=== PATIENT | male | born 1990 | race Caucasian/White ===

== ENCOUNTER 2022-05-30 00:44 | Emergency (ER) | payer MEDICAID, SELFPAY ==
[2022-05-30 00:48] VITALS: BMI 22.6
[2022-05-30 00:51] VITALS: BP 133/87; PULSE 117; RESP 13; TEMP 36.8; O2SAT 97
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
== END 2022-05-30 01:41 | disposition home or self-care (01) ==
PROVIDERS: Emergency Provider Emergency Medicine
DX: S63.610A Unspecified sprain of right index finger, initial encounter (principal); W19.XXXA Unspecified fall, initial encounter
CPT/HCPCS: 73130; 99283

== ENCOUNTER 2022-06-09 02:56 | Emergency (ER) | payer MEDICAID, SELFPAY ==
[2022-06-09 02:58] VITALS: BP 138/83; PULSE 109; RESP 19; TEMP 36.6; O2SAT 97; BMI 23.3
[2022-06-09 03:07] VITALS: PULSE 111; RESP 19; O2SAT 95
--- NOTE | 2022-06-09 03:07 | PC.NURSE ---
patient denies neck pain, reports severe headache and blurry vision. patient noncompliant with fall precautions, ambulatory to bathroom to provide urine sample, assisted by staff. on return to stretcher patient gait altered, assisted by 2 staff to bed. patient placed back in bed and put back on monitor.
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
[2022-06-09 03:27] VITALS: BP 155/106; RESP 22; O2SAT 95
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
--- NOTE | 2022-06-09 03:33 | PC.NURSE ---
patient returned to ed exam room at this time.
[2022-06-09 03:40] VITALS: RESP 22; O2SAT 97
[2022-06-09] MEDS: HYDROmorphone 1 mg/mL INJ 1 mL IVP (03:40)
[2022-06-09] MEDS: ondansetron 2 mg/ML SDV 2 mL 4 MG IVP (03:41)
[2022-06-09] MEDS: ketorolac 30 mg/mL INJ IVP (04:40)
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
[2022-06-09 05:10] VITALS: PULSE 102; RESP 16; O2SAT 98
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
== END 2022-06-09 05:12 | disposition home or self-care (01) ==
PROVIDERS: Emergency Provider Emergency Medicine
DX: S01.01XA Laceration without foreign body of scalp, initial encounter (principal); S06.0X9A Concussion with loss of consciousness of unspecified duration, initial encounter; Y00.XXXA Assault by blunt object, initial encounter
CPT/HCPCS: 12001; 70450; 96374; 96375; 99285; J1170; J1885; J2405